=== PATIENT | female | born 1965 | race Caucasian/White ===

== ENCOUNTER → 2016-10-20 | Outpatient (CLI) | payer MEDICARE ==
[~2016-10-20] MED LIST: CIPRO PO; ESTRACE PO; FLAGYL PO; LISINOPRIL20 MG PO; LORTAB 10-3251 EACH PO; LORTAB 7.5-3251 EACH PO; NEURONTIN800 MG PO
--- NOTE | ~2016-10-20 | MY29 ---
[facility] A Service of [facility] RADIOLOGY TEXT RESULTS PATIENT: MENDY HURST LOCATION: [facility] : 67 UNIT #: [id number] AGE: [address]: Crystal Ramos SEX: F ORDER DR: [id number] [facility] [address] [place], [place] [address] [id number] O MR#: [id number] #: [id number] NAME: MENDY HURST : 1965 SEX: F STUDY DATE/TIME: 10/20/2016 12:20 UNIT: [facility] ROOM: STUDY DESCRIPTION: MY MORRIS SCREENING W/ CAD BILAT Attending Physician: Crystal Ramos A.P.R.N. Ordering Physician: Crystal Ramos A.P.R.N. Primary Care Physician: Crystal Ramos A.P.R.N. MEDICAL IMAGING REPORT This report is preliminary unless electronic signature is present EXAM Digital screening mammogram 10/20/2016, [facility] HISTORY 51-year-old woman baseline mammogram COMPARISON None FINDINGS Digital imaging of each breast was completed utilizing a two-view examination of each breast in craniocaudal and mediolateral-oblique projections. Review and interpretation of digital mammograms include a second review in conjunction with FDA-approved CAD device. There is a normal parenchymal presentation bilaterally consistent with the patient's age. There are no breast masses imaged and no parenchymal asymmetry is visualized. There are no suspicious microcalcifications and I see no focal architectural disturbance. IMPRESSION Negative screening digital mammogram. One-year followup recommended. Patients over the age of 40 are entered into a reminder system with target due date for the next mammogram. A result letter will also be sent to the patient. BIRADS: 1 Negative ADDENDUM Breast parenchyma is predominantly fatty replaced Dictated by... Leandro Head M.D. [facility] A Service of [facility] RADIOLOGY TEXT RESULTS PATIENT: MENDY HURST LOCATION: [facility] : 67 UNIT #: [id number] AGE: [address]: Crystal Raoms SEX: F ORDER DR: THIS IS AN ELECTRONICALLY VERIFIED REPORT Leandro Head M.D. at 10/21/2016 8:11 AM MIKE/sugey TD: 10/20/2016 20:36 JOB #: [id number] MEDICAL IMAGING REPORT Page 1 of 1 COPY
== END | disposition home or self-care (01) ==
LOC: CWCC 11:45
DX: Z12.31 Encounter for screening mammogram for malignant neoplasm of breast (principal); R92.8 Other abnormal and inconclusive findings on diagnostic imaging of breast
CPT/HCPCS: G0202